=== PATIENT | female | born 1985 | race Caucasian/White ===

== ENCOUNTER 2018-01-03 08:47 | Emergency (ER) | payer OTHER ==
[2018-01-03 09:08] VITALS: BP 122/79; BMI 32.2
[2018-01-03] MEDS ORDERED: ACETAMINOPHEN 650 MG/20.3 ML ORAL SOLUTION (CUPS) PO ONE (09:08)
--- NOTE | 2018-01-03 09:57 | PDOC ---
History of Present Illness - General Chief Complaint: Cold Symptoms Stated Complaint: BODYACHE, HEADACHE Time Seen by Provider: 01/03/18 09:50 History Source: Patient Exam Limitations: No Limitations - History of Present Illness Initial Comments: 01/03/18 09:50 Patient is a 32-year-old female, no significant medical history currently on no medication presents with fever and body aches. Past Medical History: [Denies]. Allergies: No known allergies Medications: [None] Family History: Non-contributory Social History: Denies smoking, alcohol use, or IVDU Vital signs on arrival are [notable for pulse of 96.] Review of Systems GENERAL/CONSTITUTIONAL: [Fever and bodyaches. No weakness. No weight change.] HEAD, EYES, EARS, NOSE AND THROAT: [No change in vision. No ear pain or discharge. Sore throat] CARDIOVASCULAR: [No chest pain or shortness of breath.] RESPIRATORY: [No cough, wheezing, or hemoptysis.] GASTROINTESTINAL: [No nausea, vomiting, diarrhea or constipation. No rectal bleeding.] GENITOURINARY: [No dysuria, frequency, or change in urination.] MUSCULOSKELETAL: [No joint or muscle swelling or pain. No neck or back pain.] SKIN AND BREASTS: [No rash or easy bruising.] NEUROLOGIC: [No headache, vertigo, loss of consciousness, or loss of sensation.] PSYCHIATRIC: [No depression or anxiety.] ENDOCRINE: [No increased thirst. No abnormal weight change.] HEMATOLOGIC/LYMPHATIC: [No anemia, easy bleeding, or history of blood clots.] ALLERGIC/IMMUNOLOGIC: [No hives or skin allergy. No latex allergy.] Physical Exam: GENERAL: [The patient is awake, alert, and fully oriented, in no acute distress. ] HEAD: [Normal with no signs of trauma.] EYES: [Pupils equal, round and reactive to light, extraocular movements intact, sclera anicteric, conjunctiva clear.] ENT: [Ears normal, nares patent, oropharynx with erythema without exudates. Moist mucous membranes. No uvula deviation] NECK: [Normal range of motion, supple without lymphadenopathy, JVD, or masses.] LUNGS: [Breath sounds equal, clear to auscultation bilaterally. No wheezes, and no crackles.] HEART: [Regular rate and rhythm, normal S1 and S2 without murmur, rub or gallop. ] ABDOMEN: [Soft, nontender, normoactive bowel sounds. No guarding, no rebound. No masses. No bruising or abrasions] MUSCULOSKELETAL: [Normal range of motion, no edema. No clubbing or cyanosis. No cords, erythema, or tenderness. No CVA Tenderness with fist.] NEUROLOGICAL: [Cranial nerves II through XII grossly intact. Normal speech, normal gait.] SKIN: [Warm, Dry, normal turgor, no rashes or lesions noted.] 01/03/18 19:51 Past History - Past Medical History Allergies/Adverse Reactions: Allergies Allergy/AdvReac Type Severity Reaction Status Date / Time No Known Allergies Allergy Verified 01/03/18 09:03 Home Medications: Ambulatory Orders Ferrous Sulfate [Feosol] 325 mg PO BID #60 ud 05/22/14 Azithromycin [Zithromax 250mg Tablets -] 250 mg PO UTDICT #6 tab 01/03/18 Oseltamivir Phosphate [Tamiflu -] 75 mg PO BID #10 capsule 01/03/18 Anemia: No Asthma: No Cancer: No Cardiac Disorders: No CVA: No COPD: No Diabetes: No GI Disorders: No Disorders: No HTN: No Seizures: No Thyroid Disease: No - Suicide/Smoking/Psychosocial Hx Smoking History: Never smoked Have you smoked in the past 12 months: No Information on smoking cessation initiated: No Hx Alcohol Use: No Drug/Substance Use Hx: No Substance Use Type: None Hx Substance Use Treatment: No *Physical Exam - Vital Signs Last Vital Signs Temp Pulse Resp BP Pulse Ox 101.8 F H 107 H 18 122/79 100 01/03/18 09:05 01/03/18 09:05 01/03/18 09:05 01/03/18 09:05 01/03/18 09:05 ED Treatment Course - Medications Given in the ED: ED Medications Discontinued Medications Generic Name Dose Route Start Last Admin Trade Name Freq PRN Reason Stop Dose Admin Acetaminophen 650 mg 01/03/18 09:08 01/03/18 09:09 Tylenol Oral Solution - PO 01/03/18 09:09 650 mg NOW ONE Administration Medical Decision Making - Medical Decision Making 01/03/18 19:51 A/P: Patient here with sore throat, body aches, fever. Rapid strep and influenza sent patient is positive for both will discharge on azithromycin and Tamiflu, to alternate Motrin and Tylenol as needed for fever. *DC/Admit/Observation/Transfer Diagnosis at time of Disposition: Strep pharyngitis, Influenza A - Discharge Dispostion Disposition: HOME Condition at time of disposition: Stable Admit: No - Prescriptions Prescriptions: Azithromycin [Zithromax 250mg Tablets -] 250 mg PO UTDICT #6 tab Oseltamivir Phosphate [Tamiflu -] 75 mg PO BID #10 capsule - Referrals Referrals: Sheila Martin MD [Primary Care Provider] - - Patient Instructions Printed Discharge Instructions: Influenza, DI for Strep Throat Additional Instructions: 1. Increase fluid. 2. Pedialyte or Gatorade. 3. Please change toothbrush within 3 days of starting antibiotics. 4. Warm saltwater gargles. 5. Please follow up with PMD in 3 days if symptoms not resolving. 6. Please return to the ER unable to drink or eat, increased fever or other concerns You have been diagnosed with influenza a. Please take the medication as directed. You are contagious. Please attempt to avoid contact of multiple individuals as this will cause the infection to spread. Return to emergency room if shortness of breath, wheezing, chest pain, or fainting occurs. Motrin or Tylenol as needed for fever - Post Discharge Activity Forms/Work/School Notes: Back to Work
[2018-01-03 10:26] LABS: URINE APPEARANCE CLEAR; URINE BILIRUBIN NEGATIVE (NEGATIVE); URINE BLOOD NEGATIVE (NEGATIVE); URINE COLOR YELLOW; URINE GLUCOSE (UA) NEGATIVE (NEGATIVE); URINE KETONE NEGATIVE (NEGATIVE); URINE LEUK ESTERASE TRACE (NEGATIVE); URINE NITRITE NEGATIVE (NEGATIVE); URINE PROTEIN NEGATIVE (NEGATIVE)
[2018-01-03 10:51] VITALS: PULSE 82; TEMP 99.9
[2018-01-03 11:36] LABS: EPI CELLS FEW /HPF (FEW); URINE MUCUS RARE
== END 2018-01-03 11:24 | disposition home or self-care (01) ==
LOC: JERFT 08:47
DX: J09.X2 Influenza due to identified novel influenza A virus with other respiratory manifestations (principal); J02.0 Streptococcal pharyngitis; B95.0 Streptococcus, group A, as the cause of diseases classified elsewhere
CPT/HCPCS: 81003; 81015; 87070; 87077; 87430; 87804; 99282-25

== ENCOUNTER 2023-11-20 12:50 | Emergency (ER) | payer OTHER ==
[2023-11-20 13:03] VITALS: BMI 35.2
[2023-11-20] MEDS ORDERED: ALBUTEROL SO4 2.5/IPRATROPIUM 0.5 INH SOL 3 ML VIAL.NEB. NEB ONE ×2 (15:11→15:18)
[2023-11-20] MEDS ORDERED: DEXAMETHASONE SOD PHOSPHATE 10 MG/1 ML VIAL IM ONE (15:11)
[2023-11-20] MEDS ORDERED: ACETAMINOPHEN 500 MG TABLET (FP) PO ONE (15:12)
[2023-11-20] MEDS ORDERED: ACETAMINOPHEN 500 MG TABLET (FP) ONE (15:18)
[2023-11-20] MEDS ORDERED: DEXAMETHASONE SOD PHOSPHATE 10 MG/1 ML VIAL ONE (15:19)
[2023-11-20 16:00] VITALS: BP 118/66; PULSE 84; RESP 20; TEMP 98.8
== END 2023-11-20 16:24 | disposition home or self-care (01) ==
LOC: JERFT 12:50
PROC: 3E023GC Introduction of Other Therapeutic Substance into Muscle, Percutaneous Approach (ICD-10-PCS; principal; 2023-11-20)
PROC: 3E0F7GC Introduction of Other Therapeutic Substance into Respiratory Tract, Via Natural or Artificial Opening (ICD-10-PCS; 2023-11-20)
DX: R05.9 Cough, unspecified (principal); R09.89 Other specified symptoms and signs involving the circulatory and respiratory systems; R09.81 Nasal congestion; R53.81 Other malaise; R09.3 Abnormal sputum; J06.9 Acute upper respiratory infection, unspecified; Z20.822 Contact with and (suspected) exposure to COVID-19
CPT/HCPCS: 0241U-QW; 71046-TC-FY; 99284-25; J1100

== ENCOUNTER 2024-08-11 20:46 | Emergency (ER) | payer OTHER ==
[2024-08-11 20:55] VITALS: TEMP 98.5; BMI 30.9
[2024-08-11 22:51] LABS: BASO % 1.4 % (0-2.0); EOS % 6.6 % (0-4.5); HEMATOCRIT 24.8 % (32.4-45.2); HEMOGLOBIN 7.3 GM/dL (10.7-15.3); LYMPH % 31.7 % (8-40); MCH 17.4 pg (25.7-33.7); MCHC 29.3 g/dl (32.0-36.0); MEAN CELL VOLUME 59.3 fl (80-96); MEAN PLT VOLUME 8.2 fl (7.5-11.1); MONO % 7.4 % (3.8-10.2); NEUT % 52.9 % (42.8-82.8); PLATELET COUNT 348 10^3/uL (134-434); RBC 4.18 M/mm3 (3.60-5.2); RDW 19.3 % (11.6-15.6); WHITE BLOOD COUNT 8.7 K/mm3 (4.0-10.0)
[2024-08-11 22:53] LABS: EPI CELLS >36 /uL (0-25.1); HYALINE CASTS 0 /uL (0-3.1); URINE APPEARANCE CLEAR; URINE BILIRUBIN NEGATIVE (NEGATIVE); URINE COLOR YELLOW; URINE GLUCOSE (UA) NEGATIVE (NEGATIVE); URINE KETONE NEGATIVE (NEGATIVE); URINE LEUK ESTERASE NEGATIVE (NEGATIVE); URINE NITRITE NEGATIVE (NEGATIVE); URINE PROTEIN 2+ (NEGATIVE); URINE RBC 4627 /uL (0-23.9); URINE WBC 6 /uL (0-25.8)
[2024-08-11 22:55] LABS: URINE BACTERIA 14 /uL (0-1359)
[2024-08-11 22:57] LABS: INR 1.05 (0.83-1.09); PROTHROMBIN TIME (PATIENT) 11.9 SEC (9.7-13.0)
[2024-08-11 22:59] LABS: ACTIVATED PTT 24.7 SECONDS (25.2-36.5)
[2024-08-11 23:17] LABS: POTASSIUM 3.8 mmol/L (3.5-5.1)
[2024-08-11 23:20] LABS: ALBUMIN 3.4 g/dl (3.4-5.0); BLOOD UREA NITROGEN 13.5 mg/dL (7-18); CALCIUM 9.5 mg/dL (8.5-10.1)
[2024-08-11 23:24] LABS: CREATININE 0.7 mg/dL (0.55-1.3)
[2024-08-11 23:25] LABS: BILIRUBIN,TOTAL 0.4 mg/dL (0.2-1); TOT PROT 7.1 g/dl (6.4-8.2)
[2024-08-11 23:58] LABS: ANISOCYTOSIS 2+; MACROCYTOSIS 0
[2024-08-12 01:14] LABS: HIV INTERPRETATION NEGATIVE (NEGATIVE)
[2024-08-12 01:41] LABS: BASO % 1.4 % (0-2.0); HEMATOCRIT 24.1 % (32.4-45.2); LYMPH % 37.3 % (8-40); MCHC 28.8 g/dl (32.0-36.0); MEAN CELL VOLUME 59.9 fl (80-96); MEAN PLT VOLUME 8.4 fl (7.5-11.1); MONO % 8.4 % (3.8-10.2); NEUT % 46.9 % (42.8-82.8); PLATELET COUNT 326 10^3/uL (134-434); RBC 4.03 M/mm3 (3.60-5.2); RDW 19.7 % (11.6-15.6); WHITE BLOOD COUNT 8.7 K/mm3 (4.0-10.0)
[2024-08-12 01:46] LABS: MCH 17.2 pg (25.7-33.7)
[2024-08-12 01:48] LABS: HEMOGLOBIN 6.9 GM/dL (10.7-15.3)
[2024-08-12 02:00] VITALS: BP 119/74; PULSE 74; RESP 19
== END 2024-08-12 02:33 | disposition home or self-care (01) ==
LOC: JER 20:46
DX: N93.9 Abnormal uterine and vaginal bleeding, unspecified (principal); R55 Syncope and collapse; R06.02 Shortness of breath; R07.9 Chest pain, unspecified; R10.31 Right lower quadrant pain; R10.32 Left lower quadrant pain
CPT/HCPCS: 36415; 71046-TC-FY; 80053; 81003; 84484; 84703; 85025; 85610; 85730; 86803; 86850; 86900; 86901; 87070; 87077; 87086; 87205; 87389; 93005; 93010; 99285-25

== ENCOUNTER 2024-11-26 04:35 | Day surgery (SDC) | payer OTHER ==
[2024-11-26] MEDS ORDERED: PHENAZOPYRIDINE HCL 100 MG TABLET (FP) ONE (06:26)
[2024-11-26] MEDS: PHENAZOPYRIDINE HCL 100 MG TABLET (FP) PO ONE (06:44)
[2024-11-26] MEDS ORDERED: MIDAZOLAM HCL 2 MG/2 ML SINGLE DOSE VIAL ONE (07:35)
[2024-11-26] MEDS ORDERED: PROPOFOL 20 ML ONE (07:35)
[2024-11-26] MEDS ORDERED: SUCCINYLCHOLINE CHLORIDE 200 MG/10 ML SYRINGE ONE (07:35)
[2024-11-26] MEDS ORDERED: ROCURONIUM BROMIDE 50 MG/5 ML SYRINGE ONE (07:35)
[2024-11-26] MEDS ORDERED: LIDOCAINE HCL 2% 100 MG/5 ML DISP.SYRIN ONE (07:35)
[2024-11-26] MEDS ORDERED: ceFAZolin SODIUM 1 GM VIAL ONE (08:01)
[2024-11-26] MEDS ORDERED: DEXAMETHASONE SOD PHOSPHATE 4 MG/1 ML VIAL ONE (08:04)
[2024-11-26] MEDS ORDERED: ONDANSETRON 4 MG/2 ML VIAL ONE (08:04)
[2024-11-26] MEDS: ceFAZolin SODIUM 1 GM VIAL IVPB ONE (08:10)
[2024-11-26] MEDS ORDERED: TRANEXAMIC ACID 1000 MG/10 ML VIAL ONE (08:11)
[2024-11-26] MEDS ORDERED: ACETAMINOPHEN INJECTION 100 ML ONE (09:03)
[2024-11-26] MEDS ORDERED: KETOROLAC TROMETHAMINE 30 MG/1 ML VIAL ONE (09:03)
[2024-11-26] MEDS ORDERED: HYDROmorphone HCl 2 MG/ML VIAL ONE (09:03)
[2024-11-26] MEDS ORDERED: SUGAMMADEX SODIUM 200 MG/2 ML VIAL ONE (09:14)
[2024-11-26] MEDS ORDERED: ONDANSETRON 4 MG/2 ML VIAL IVPUSH PRN (09:51)
[2024-11-26] MEDS ORDERED: BISACODYL 5 MG TABLET.DR (FP) PO PRN (09:53)
[2024-11-26] MEDS ORDERED: oxyCODONE HCL 5 MG TABLET PO PRN ×3 (09:53→11:17)
[2024-11-26] MEDS: FERROUS SO4 325 MG TABLET (FP) PO SCH (11:00)
[2024-11-26] MEDS: ACETAMINOPHEN 325 MG TABLET (FP) PO SCH ×2 (15:24→19:15)
[2024-11-26] MEDS: LACTATED RINGERS SOLUTION 1,000 ML IV SCH (15:24)
[2024-11-26] MEDS: CEFAZOLIN 1 GM/D5W 1 GM/50 ML BAG IVPB SCH ×2 (16:10→19:15)
[2024-11-26] MEDS: IBUPROFEN 800 MG/8 ML IJ IVPB PRN (17:36)
[2024-11-26] MEDS: TRANEXAMIC ACID 1000 MG/10 ML VIAL IVPUSH ONE (19:14)
[2024-11-26] MEDS: ACETAMINOPHEN 1000 MG/100 ML BAG IVPB ONE (19:14)
[2024-11-26] MEDS: CEFAZOLIN 2 GM in DEXTROSE 5%-WATER - 100 ML IVPB ONE (19:15)
[2024-11-26] MEDS: ONDANSETRON 4 MG/2 ML VIAL IVPUSH PRN (19:25)
[2024-11-26 20:45] LABS: HEMATOCRIT 37.8 % (32.4-45.2); HEMOGLOBIN 12.3 GM/dL (10.7-15.3); MCH 25.8 pg (25.7-33.7); MCHC 32.7 g/dl (32.0-36.0); MEAN CELL VOLUME 79.1 fl (80-96); MEAN PLT VOLUME 9.2 fl (7.5-11.1); PLATELET COUNT 272 10^3/uL (134-434); RBC 4.78 M/mm3 (3.60-5.2); WHITE BLOOD COUNT 10.1 K/mm3 (4.0-10.0)
[2024-11-26 21:09] LABS: POTASSIUM 4.4 mmol/L (3.5-5.1)
[2024-11-26 21:12] LABS: BLOOD UREA NITROGEN 11.5 mg/dL (7-18); CALCIUM 8.6 mg/dL (8.5-10.1)
[2024-11-26 21:16] LABS: CREATININE 0.6 mg/dL (0.55-1.3)
[2024-11-26] MEDS: ZOLPIDEM TARTRATE 5 MG TABLET PO PRN (21:17)
[2024-11-26] MEDS: DOCUSATE SODIUM 100 MG CAPSULE (FP) PO PRN (21:17)
[2024-11-26] MEDS: SIMETHICONE 80 MG TAB.CHEW (FP) PO PRN (21:18)
[2024-11-26 21:24] VITALS: RESP 16
[2024-11-27] MEDS: CEFAZOLIN 1 GM/D5W 1 GM/50 ML BAG IVPB SCH (00:11)
[2024-11-27 04:17] VITALS: BP 116/68; PULSE 79; TEMP 98.5
[2024-11-27 07:39] LABS: POTASSIUM 4.2 mmol/L (3.5-5.1)
[2024-11-27 07:40] LABS: CALCIUM 8.8 mg/dL (8.5-10.1)
[2024-11-27 07:41] LABS: BLOOD UREA NITROGEN 9.1 mg/dL (7-18)
[2024-11-27 07:44] LABS: CREATININE 0.5 mg/dL (0.55-1.3)
[2024-11-27 07:48] LABS: HEMATOCRIT 34.8 % (32.4-45.2); HEMOGLOBIN 11.6 GM/dL (10.7-15.3); MCH 26.4 pg (25.7-33.7); MCHC 33.4 g/dl (32.0-36.0); MEAN CELL VOLUME 78.8 fl (80-96); MEAN PLT VOLUME 9.3 fl (7.5-11.1); PLATELET COUNT 261 10^3/uL (134-434); RBC 4.41 M/mm3 (3.60-5.2); RDW 19.9 % (11.6-15.6); WHITE BLOOD COUNT 9.4 K/mm3 (4.0-10.0)
[2024-11-27] MEDS: ENOXAPARIN NA (PORCINE) 40 MG/0.4 ML DISP.SYRIN SQ SCH (09:13)
== END 2024-11-27 11:00 | disposition home or self-care (01) ==
LOC: JASUSAT 04:35 → J3W 12:49 → JASUSAT 11-27 11:00
PROVIDERS: ATTEND Obstetrics & Gynecology
PROC: 8E0W4CZ Robotic Assisted Procedure of Trunk Region, Percutaneous Endoscopic Approach (ICD-10-PCS; 2024-11-26)
PROC: 0UT9FZZ Resection of Uterus, Via Natural or Artificial Opening With Percutaneous Endoscopic Assistance (ICD-10-PCS; principal; 2024-11-26 07:30)
PROC: 0UT7FZZ Resection of Bilateral Fallopian Tubes, Via Natural or Artificial Opening With Percutaneous Endoscopic Assistance (ICD-10-PCS; 2024-11-26 07:30)
DX: N92.0 Excessive and frequent menstruation with regular cycle (principal); D25.1 Intramural leiomyoma of uterus; N72 Inflammatory disease of cervix uteri
CPT/HCPCS: 58554; S2900; 36415; 80048; 81025; 85027; 86850; 86900; 86901; 88305-TC; 88307-TC; 88341-TC; 88342-TC; 94010; 94760; J0131

== ENCOUNTER 2024-12-17 00:17 | Emergency (ER) | payer OTHER ==
[2024-12-17 00:23] VITALS: BP 142/81; PULSE 75; RESP 20; TEMP 98.6; BMI 29.8
[2024-12-17] MEDS: ACETAMINOPHEN 1000 MG/100 ML BAG IVPB ONE (01:24)
[2024-12-17] MEDS ORDERED: ACETAMINOPHEN 500 MG TABLET (FP) ONE (02:16)
[2024-12-17] MEDS: ACETAMINOPHEN 500 MG TABLET (FP) PO ONE (02:26)
[2024-12-17 02:44] LABS: BASO % 0.7 % (0-2.0); EOS % 3.8 % (0-4.5); HEMATOCRIT 35.7 % (32.4-45.2); HEMOGLOBIN 11.8 GM/dL (10.7-15.3); LYMPH % 34.2 % (8-40); MCH 26.1 pg (25.7-33.7); MEAN CELL VOLUME 78.9 fl (80-96); MONO % 7.3 % (3.8-10.2); PLATELET COUNT 255 10^3/uL (134-434); RBC 4.52 M/mm3 (3.60-5.2); RDW 18.3 % (11.6-15.6); WHITE BLOOD COUNT 7.7 K/mm3 (4.0-10.0)
[2024-12-17 03:19] LABS: EPI CELLS 12 /uL (0-25.1); HYALINE CASTS 1 /uL (0-3.1); PH,URINE 5.5 (5.0-8.0); URINE APPEARANCE CLEAR; URINE BACTERIA 5 /uL (0-1359); URINE BILIRUBIN NEGATIVE (NEGATIVE); URINE COLOR ORANGE; URINE GLUCOSE (UA) NEGATIVE (NEGATIVE); URINE KETONE NEGATIVE (NEGATIVE); URINE LEUK ESTERASE 1+ (NEGATIVE); URINE NITRITE NEGATIVE (NEGATIVE); URINE PROTEIN 1+ (NEGATIVE); URINE RBC 14061 /uL (0-23.9); URINE WBC 118 /uL (0-25.8)
[2024-12-17 10:44] LABS: URINE CRYSTALS NOT SEEN /hpf
== END 2024-12-17 03:11 | disposition home or self-care (01) ==
LOC: JER 00:17
DX: N99.820 Postprocedural hemorrhage of a genitourinary system organ or structure following a genitourinary system procedure (principal); R10.32 Left lower quadrant pain
CPT/HCPCS: 36415; 76830-TC; 81003; 84703; 85025; 87086; 99284-25